=== PATIENT | female | born 1965 | race Caucasian/White ===

== ENCOUNTER 2018-12-24 16:26 | Emergency (ER) | payer BC ==
[~2018-12-24] VITALS: Ht 157.5 cm; Wt 66.8 kg
[~2018-12-24 16:26] MED LIST: IBUP-1542 PO
[2018-12-24 17:21] VITALS: Ht 157.5 cm; Wt 66.8 kg
[2018-12-24 20:26] VITALS: BP 160/75; PULSE 85; RESP 18
== END 2018-12-24 20:26 | disposition home or self-care (01) ==
LOC: FTE 16:26
DX: M25.561 Pain in right knee (principal)
CPT/HCPCS: 73562